=== PATIENT | male | born 1995 | race Caucasian/White ===

== ENCOUNTER 2024-06-06 17:15 | Outpatient (CLI) | payer BC, SELFPAY ==
[2024-06-06 18:42] LABS: Volume Semen 2.2 mL (2-5)
[2024-06-06 18:43] LABS: Sperm Immotility 65 % (50-60); Viscosity Semen High Viscosity
[2024-06-06 18:45] LABS: Epithelial Count Semen 0-4 /hpf; White Blood Count Semen 0-4 /hpf
[2024-06-06 18:50] LABS: Pathology Referral Yes
[2024-06-06 19:11] LABS: Sperm Progressive Motility 35 % (31-34)
[2024-06-06 20:42] LABS: Sperm Vitality-% Live Sperm 65 %
== END 2024-06-06 17:16 | disposition home or self-care (01) ==
PROVIDERS: Family Provider Electrodiagnostic Medicine; PCP Electrodiagnostic Medicine; Visit Provider Nurse Practitioner Family
DX: Z31.41 Encounter for fertility testing (principal)
CPT/HCPCS: 80503; 89320